=== PATIENT | female | born 1965 | race Caucasian/White ===

== ENCOUNTER 2020-12-09 19:50 | Inpatient (IN) | payer OTHER ==
[~2020-12-09] VITALS: Ht 160 cm; Wt 61.5 kg
[2020-12-09 20:13] VITALS: BP 124/72
[2020-12-09] MEDS ORDERED: VENLAFAXINE HCL25 MG PO (20:17)
[2020-12-09 20:54] LABS: ABSOLUTE LYMPHOCYTES 0.9 thou/uL (0.8-5.3); ABSOLUTE MONOCYTES 0.4 thou/uL (0.0-1.2); ABSOLUTE NEUTROPHILS 6.6 thou/uL (1.6-8.1); BASOPHILS 0.3 %; EOSINOPHILS 0.3 %; HEMATOCRIT 35.6 % (37.0-47.0); HEMOGLOBIN 11.3 gm/dL (12.0-15.0); LYMPHOCYTES 11.6 %; MCH 24.1 pg (26.0-34.0); MCHC 31.6 g/dL (28.0-37.0); MCV 76.2 fL (80.0-100.0); MONOCYTES 4.7 %; MPV 8.7 fl. (7.2-11.1); NUCLEATED RBCS 0 /100WBC; PLATELET COUNT* 290 thou/uL (150-400); POLYS 83.1 %; RBC 4.68 mil/uL (4.20-5.00); RDW-CV 17.4 % (10.5-14.5)
[2020-12-09 20:57] LABS: URINE BILIRUBIN NEGATIVE (Negative); URINE BLOOD NEGATIVE (Negative); URINE CLARITY CLEAR; URINE COLOR YELLOW; URINE GLUCOSE-RANDOM NEGATIVE (Negative); URINE KETONES TRACE (Negative); URINE LEUKOCYTES-REFLEX NEGATIVE (Negative); URINE NITRITE-REFLEX NEGATIVE (Negative); URINE PROTEIN NEGATIVE (Negative); URINE SPECIFIC GRAVITY 1.025 (1.005-1.030); URINE UROBILINOGEN 0.2 E.U./dl (0.2-1.0)
[2020-12-09 21:03] LABS: CREATININE 0.7 mg/dL (0.6-1.3); POTASSIUM 3.5 mmol/L (3.5-5.1)
[2020-12-09 21:07] LABS: ALBUMIN 3.7 g/dL (3.4-5.0); TOTAL BILIRUBIN 0.5 mg/dL (<0.1-1.0); TOTAL PROTEIN 7.1 g/dL (6.4-8.2)
[2020-12-10 02:07] VITALS: BP 118/70
[2020-12-10 03:17] VITALS: BP 104/68
--- NOTE | 2020-12-10 04:01 | NUR ---
ASSUMED CAREOF FROM ED, UPON ARRIVAL TO UNIT PT , MAY, DISCUSSED POC . PT REFUSED NG TUBE PLACEMENT UNTIL ABLE TO TALK TO ADMITTING MD. IV FLUIDS STARTED PRESCIBED. PT REQUESTING POPSICLE, THAT ED PHYSICIAN "PROMISED" SHE COULD HAVE ONE. GIVEN REQUESTED PT DENIES PAIN OR NAUSEA. WILL CONTINUE WITH CURRENT PLAN OF CARE.
[2020-12-10 04:26] VITALS: BP 109/54
[2020-12-10 08:30] VITALS: BP 130/70
--- NOTE | 2020-12-10 09:44 | EKG ---
[place] [address] ELECTROCARDIOGRAM REPORT Name: JOLIE SOOD Room: [address] ADM IN ..#: [id number] Admission: 12/09/20 Attend Phys: Luigi Melendez Discharge: Date of : 65 Date of Service: 12/09/202053 Report #: [id number] THIS REPORT FOR: //name// [facility] ED Test Date: 2020-12-09 Test Time: 20:54:44 Pat Name: JOLIE SOOD Department: Room: [facility] Gender: F Eeg Tech: [place] : 1965 Requested By: Shanika Queen Order Number: [id number] MD: Sanjay Jalloh Measurements Intervals [place] Rate: 162 P: 0 VT: 36 QRS: 109 QRSD: 121 T: 255 QT: 394 QTc: 648 Interpretive Statements Sinus rhythm artifact noted Nonspecific intraventricular conduction delay Abnormal lateral Q waves Nonspecific T abnormalities, inferior leads No previous ECG available for comparison Electronically Signed On 12-10-2020 9:44:37 CDT by Sanjay Jalloh [email or web address] <ELECTRONICALLY SIGNED> By: Sanjay Jalloh MD, FAC 12/10/2044 53 53 Sanjay Jalloh MD, [facility] /EPI
[2020-12-10 12:00] VITALS: BP 112/73
--- NOTE | 2020-12-10 12:20 | NUR ---
CM ASSESSMENT: PT A&O, INDEPENDENT WITH ADL'S, AND ACTIVE. PT RESIDES AT HOME WITH FAMILY. PT USES 0 DME. PT HAS 0 HX OF HH OR SNF. REVIEW OF PT'S CHART INFORMS THAT SHE IS UNINSURED. PT CONFIRMS THIS AND THAT MED ASSIST COMPLETED THE MEDICAID ASSESSMENT. PT BELIEVES THAT SHE DOES NOT QUALIFY. CM TO PROVIDE PT WITH PRINTED INFO FOR [facility]ITY [facility]ALTH[facility]ARE WITH THE [facility] GOLD PLAN. CM INFORMED THAT PT MAY BE READY TO D/C TODAY. NO OTHER CM NEEDS ANTICIPATED. CM WILL REMAIN AVAILABLE TO ASSIST AND FOLLOW NEEDED.
[2020-12-10 16:10] VITALS: BP 112/73
== END 2020-12-10 18:30 | disposition home or self-care (01) | DRG 389 ==
LOC: M.ERS 19:50 → M.TBA-ER 23:14 → M.2W 12-10 02:36
PROVIDERS: Nurse Practitioner Family; ADMIT Internal Medicine; ATTEND Internal Medicine
DX: K56.609 Unspecified intestinal obstruction, unspecified as to partial versus complete obstruction (principal); K46.0 Unspecified abdominal hernia with obstruction, without gangrene; N17.9 Acute kidney failure, unspecified; E66.01 Morbid (severe) obesity due to excess calories; Z20.822 Contact with and (suspected) exposure to COVID-19; Z88.0 Allergy status to penicillin; Z68.24 Body mass index [BMI] 24.0-24.9, adult